=== PATIENT | male | born 1955 | race Caucasian/White ===

== ENCOUNTER 2018-01-02 06:31 | Inpatient (IN) | payer BC ==
[~2018-01-02 06:31] MED LIST: Acetaminophen/oxyCODONE 325-5 MG Tab PO PRN; Cyclobenzaprine 10 MG Tab PO PRN; Pregabalin 25 MG Cap PO SCH; oxyCODONE ER 10 MG TAB.ER PO SCH
[2018-01-02] MEDS ORDERED: Naloxone 0.4 MG/ML SDV IVPUSH PRN (06:32)
[2018-01-02] MEDS ORDERED: Morphine 2 MG/ML Syringe IVPUSH PRN (06:32)
[2018-01-02] MEDS ORDERED: diphenhydrAMINE 50 MG/ML SDV IVPUSH PRN ×2 (06:32→10:51)
[2018-01-02] MEDS ORDERED: Sennosides 8.6 MG Tab PO PRN (06:32)
[2018-01-02] MEDS ORDERED: Bisacodyl 5 MG Tab PO PRN (06:32)
[2018-01-02] MEDS ORDERED: Magnesium Hydroxide 400 MG/5 ML Susp 30 ML Cup PO PRN (06:32)
[2018-01-02] MEDS ORDERED: Ondansetron 4 MG/2 ML SDV IVPUSH PRN ×2 (06:32→10:51)
[2018-01-02] MEDS ORDERED: Lactated Ringers 1,000 ML IV SCH (07:00)
[2018-01-02] MEDS ORDERED: Sodium Chloride 0.9% 10 ML Syringe FLUSH PRN (07:00)
[2018-01-02] MEDS ORDERED: Acetaminophen 325 MG Tab PO ONE (07:00)
[2018-01-02] MEDS ORDERED: Lidocaine 1%/Sod Bicarbonate in NS 8.4% 1 ML Syringe IDERM PRN (07:00)
[2018-01-02] MEDS ORDERED: Morphine 4 MG/ML Syringe IVPUSH PRN (07:11)
--- NOTE | 2018-01-02 07:31 | PCM.PREANE ---
Preanesthetic Assessment - Procedure Proposed Procedure: Left Total Knee Arhtroplasty - Anesthesia/Transfusion/Family Hx Anesthesia History: Prior Anesthesia Without Reaction Family History of Anesthesia Reaction: No Transfusion History: No Prior Transfusion(s) Intubation History: Unknown - Review of Systems General: No Symptoms Pulmonary: No Symptoms Cardiovascular: No Symptoms Gastrointestinal: No Symptoms Neurological: No Symptoms Other: Reports: None - Physical Assessment NPO Status Date: 01/01/18 NPO Status Time: 19:00 Pulse: 58 O2 Sat by Pulse Oximetry: 97 Respiratory Rate: 16 Blood Pressure: 127/94 Temperature: 98.4 C Height: 1.83 m ASA Class: 3 Mental Status: Alert & Oriented x3 Dentition: Reports: Missing Tooth/Teeth (2 teeth pulled last week, one back right and back left ) Thyro-Mental Finger Breadths: 3 Mouth Opening Finger Breadths: 5 ROM/Head Extension: Limited/Partial Lungs: Clear to Auscultation Cardiovascular: Regular Rate, Bradycardia - Lab Values: Laboratory Last Values MRSA (PCR) Negative 12/20/17 10:50 - Allergies Allergies/Adverse Reactions: Allergies Allergy/AdvReac Type Severity Reaction Status Date / Time Latex, Natural Rubber Allergy Rash Verified 12/30/17 08:48 varenicline [From Chantix] AdvReac Depression Verified 12/30/17 08:48 - Blood Blood Available: No Product(s) Available: None - Anesthesia Plan Beta Anjel: Metoprolol Med Last Dose Date: 01/02/18 Med Last Dose Time: 05:00 - Acknowledgements Anesthesia Type Planned: Spinal Pt an Appropriate Candidate for the Planned Anesthesia: Yes Alternatives and Risks of Anesthesia Discussed w Pt/Guardian: Yes Pt/Guardian Understands and Agrees with Anesthesia Plan: Yes PreAnesthesia Questionnaire HEENT History: Reports: Sinusitis, Other (See Below) Other HEENT History: Bacterial Conjunctivitis, Sinus Pain Cardiovascular History: Reports: High Cholesterol, Hypertension, Stents, Other ( See Below) Other Cardiovascular History: PVD, Heart Disease, Chest Pain Gastrointestinal History: Reports: Other (See Below) Other Gastrointestinal History: Rectal Mass Genitourinary History: Reports: Other (See Below) Other Genitourinary History: Erectile Dysfunction Musculoskeletal History: Reports: Arthritis, Back Pain, Chronic, Other (See Below) Other Musculoskeletal History: Left wrist ganglion cyst, Sacroilliac Pain, Hand Injury/Trauma Other Neuro History: Lumbar Pain Hematologic History: Reports: Other (See Below) Other Hematologic History: Hematoma Dermatologic History: Reports: Eczema - Past Surgical History HEENT Surgical History: Reports: None Cardiovascular Surgical History: Reports: Coronary Artery Stent Respiratory Surgical History: Reports: None GI Surgical History: Reports: Appendectomy Male Surgical History: Reports: Vasectomy Musculoskeletal Surgical History: Reports: Arthroscopic Knee, Carpal Tunnel, Knee Replacement, Shoulder Surgery, Other (See Below) Other Musculoskeletal Surgeries/Procedures:: RTKA, Elbow Surgery x2, Foot surgery, Right Knee arthroscopy x3, Right shoulder Surgery, CTR Oncologic Surgical History: Reports: None Dermatological Surgical History: Reports: Skin Graft - SUBSTANCE USE Smoking Status *Q: Current Every Day Smoker (About half a pack per day.) Tobacco Use Within Last Twelve Months: Cigarettes Recreational Drug Use History: No - HOME MEDS Home Medications: Home Meds Enalapril Maleate 20 mg PO DAILY 05/13/15 [History] Ketoprofen/Lidocaine 10%/5%. 1 pump TOP TID 05/13/15 [History] Sildenafil [Viagra] 100 mg PO DAILY PRN 05/13/15 [History] Triamcinolone Acetonide [Triamcinolone Acetonide 0.1% Crm] 15 gm TOP DAILY PRN 05/13/15 [History] traMADol HCl [Tramadol HCl] 50 mg PO DAILY PRN 05/13/15 [History] Cholecalciferol (Vitamin D3) [Vitamin D] 5,000 unit PO DAILY 12/30/17 [History] Metoprolol Tartrate 25 mg PO BID 12/30/17 [History] Multivitamins/Iron/Folic Acid [Cerovite Advanced Formula] 1 tab PO DAILY [History] Potassium Gluconate 99 mg PO DAILY 12/30/17 [History] Ubidecarenone [Co Q-10] 100 mg PO DAILY 12/30/17 [History] amLODIPine Besylate [Amlodipine Besylate] 10 mg PO DAILY 12/30/17 [History] atorvaSTATin Calcium [Atorvastatin Calcium] 40 mg PO DAILY 12/30/17 [History] - CURRENT (IN HOUSE) MEDS Current Meds: Current Medications Bisacodyl (Dulcolax) 5 mg PO DAILY PRN PRN Reason: Constipation Morphine Sulfate 8 mg/Epinephrine HCl 0.3 mg/Cefuroxime Sodium 750 mg/Ketorolac Tromethamine 30 mg/Sodium Chloride 27.9 ml 0 mg .XX ONETIME ONE Stop: 01/02/18 08:51 Cyclobenzaprine HCl (Flexeril) 10 mg PO TID PRN PRN Reason: Spasms Diphenhydramine HCl (Benadryl) 25 mg IVPUSH Q4H PRN PRN Reason: Nausea Docusate Sodium (Colace) 100 mg PO BID [facility] Famotidine (Pepcid) 20 mg PO Q12H [facility] Lactated Ringer's (Ringers, Lactated) 1,000 mls @ 125 mls/hr IV ASDIRECTED [facility] Cefazolin Sodium/Dextrose 2 gm (/ Premix) 50 mls @ 100 mls/hr IV Q8H [facility] Stop: 01/02/18 23:14 Ketorolac Tromethamine (Toradol) 15 mg IVPUSH Q6H PRN PRN Reason: Pain Lidocaine/Sodium Bicarbonate (Buffered Lidocaine 1% In Ns 8.4%) 0.25 ml IDERM ONETIME PRN PRN Reason: Prior to IV Start Magnesium Hydroxide (Milk Of Magnesia) 30 ml PO BID PRN PRN Reason: Constipation Morphine Sulfate (Morphine) 2 mg IVPUSH Q2H PRN PRN Reason: Breakthrough Pain Naloxone HCl (Narcan) 0.1 mg IVPUSH Q5M PRN PRN Reason: Oversedation Ondansetron HCl (Zofran) 4 mg IVPUSH Q6H PRN PRN Reason: Nausea/Vomiting Oxycodone HCl (Oxycontin) 10 mg PO ASDIRECTED [facility] Stop: 01/02/18 11:00 Oxycodone/Acetaminophen (Percocet 325-5 Mg) 1 - 2 tab PO Q4H PRN PRN Reason: Pain Pregabalin (Lyrica) 50 mg PO ONETIME [facility] Rivaroxaban (Xarelto) 10 mg PO DAILY [facility] Senna (Senna) 8.6 mg PO BID PRN PRN Reason: Constipation Sodium Chloride (Saline Flush) 10 ml FLUSH ASDIRECTED PRN PRN Reason: Keep Vein Open Discontinued Medications Acetaminophen (Tylenol) 975 mg PO ONETIME ONE Stop: 01/02/18 07:01 Morphine Sulfate (Morphine) 2 mg IVPUSH Q2H PRN PRN Reason: Breakthrough Pain
[2018-01-02] MEDS ORDERED: Propofol 200 MG/20 ML SDV ONE ×4 (07:44→09:25)
[2018-01-02] MEDS ORDERED: Midazolam 1 MG/ML 2 ML SDV ONE (07:45)
[2018-01-02] MEDS ORDERED: fentaNYL 100 MCG/2 ML SDV ONE (07:45)
[2018-01-02] MEDS ORDERED: ceFAZolin 1 GM Vial ONE (07:51)
[2018-01-02] MEDS ORDERED: Bupivacaine 0.75% 30 ML SDV ONE (08:18)
[2018-01-02] MEDS ORDERED: ePHEDrine 50 MG/ML SDV ONE (09:21)
[2018-01-02] MEDS: ceFAZolin 1 GM Vial ONE ×2 (09:39→09:55)
[2018-01-02] MEDS: Iodine/Sodium Iodide 2% Tincture 30 ML Bottle ONE ×2 (09:39→09:53)
[2018-01-02] MEDS: Bupivacaine 0.25% 30 ML SDV ONE ×2 (09:40→10:01)
[2018-01-02] MEDS: Morphine 8 MG, EPINEPHrine 0.3 MG, Cefuroxime 750 MG, Ketorolac 30 MG, Sodium Chloride ... ONE ×10 (09:40→10:00)
[2018-01-02] MEDS: Vancomycin 1 GM SDV ONE ×2 (09:41→10:03)
[2018-01-02] MEDS ORDERED: Lactated Ringers 1,000 ML ONE (09:49)
[2018-01-02] MEDS ORDERED: Ketorolac 15 MG/ML SDV IVPUSH PRN (10:30)
[2018-01-02] MEDS ORDERED: Ropivacaine 0.5% 5 MG/ML 30 ML SDV ONE (10:46)
[2018-01-02] MEDS ORDERED: EPINEPHrine 1 MG/ML SDV ONE (10:46)
--- NOTE | 2018-01-02 10:50 | PCM.POSTAN ---
POST ANESTHESIA ASSESSMENT - MENTAL STATUS Mental Status: Alert - VITAL SIGNS Pulse Rate: 67 SaO2: 95 Resp Rate: 12 Blood Pressure: 105/68 Temperature: 97.4 C - RESPIRATORY Respiratory Status: Respiratory Rate WNL, Airway Patent, O2 Saturation Stable - CARDIOVASCULAR CV Status: Pulse Rate WNL, Blood Pressure Stable - GASTROINTESTINAL GI Status: No Symptoms - POST OP HYDRATION Hydration Status: Adequate & Stable
[2018-01-02] MEDS ORDERED: fentaNYL 100 MCG/2 ML SDV IVPUSH PRN (10:51)
--- NOTE | 2018-01-02 11:20 | CR ---
Left knee: AP and lateral views of the left knee were obtained. Comparison: No prior left knee exam. Knee prosthesis is seen. Components are aligned. Underlying bony structures are intact. Soft tissue air is noted. Impression: 1. Satisfactory radiographic appearance of recently placed left knee prosthesis. Diagnostic code #2
--- NOTE | 2018-01-02 11:58 | PCM.SN ---
- Free Text/Narrative Note: Left selective femoral nerve block at the adductor canal for post-procedure pain control under US guidance requested by Dr. Cavazos. Time Out: 1100 Start: 1100 End: 1107 Chart reviewed. Consent signed. Questions answered. Appropriate monitors applied. Time out performed. Left mid-shaft femur identified with ultrasound, scanning medially of femur, the femoral artery in the adductor canal visualized , and the femoral nerve located laterally to the artery. The skin was prepped lateral to the ultrasound probe with chlorahexadine times two. The 21ga 4 insulated block needle was inserted under direct ultrasound guidance into the adductor canal. 25mL of 0.5% ropivacaine with 1:200,000 epinephrine was injected circumferentially around the nerve with intermittent negative aspiration noted. Patient tolerated the procedure well. No complications noted. Sterile technique noted along with sterile gloves, mask, and sterile probe cover. See picture on progress note and vital signs on nurses notes. Block completed in PACU. Beny Coelho CRNA
[2018-01-02] MEDS ORDERED: Non-Formulary Medication 1 Each (Sildenafil [Viagra] 100 MG) PO PRN (12:34)
[2018-01-02] MEDS ORDERED: Triamcinolone Acetonide 0.1% Crm 15 GM Tube TOP PRN (12:34)
--- NOTE | 2018-01-02 13:24 | PCM.CONS ---
H&P History of Present Illness - General Date of Service: 01/02/18 Admit Problem/Dx: Admission Diagnosis/Problem Admission Diagnosis/Problem Osteoarthritis of knee Source of Information: Patient, Old Records, Provider History Limitations: Reports: No Limitations - History of Present Illness Initial Comments - Free Text/Narative: is a 62 yo male patient of Dr. Cavazos who is post-operative day 0 of left TKA. Hospital medicine was consulted for post-operative medical care. At this time he is stable. Pain is controlled. He denies any chest pain, shortness of breath, palpitations, nausea, or vomiting. He carries a history of: NE, HLD, HTN , CAD with stents, PVD, osteo-arthritis, right TKA. He smokes 1/2 ppd but states he is trying to quit. He is a full code. His primary care provider is Yumiko Swan. Left Knee Pain Score (Numeric/FACES): 3 - Related Data Allergies/Adverse Reactions: Allergies Allergy/AdvReac Type Severity Reaction Status Date / Time Latex, Natural Rubber Allergy Rash Verified 12/30/17 08:48 varenicline [From Chantix] AdvReac Depression Verified 12/30/17 08:48 Home Medications: Home Meds Enalapril Maleate 20 mg PO DAILY 05/13/15 [History] Ketoprofen/Lidocaine 10%/5%. 1 pump TOP TID 05/13/15 [History] Sildenafil [Viagra] 100 mg PO DAILY PRN 05/13/15 [History] Triamcinolone Acetonide [Triamcinolone Acetonide 0.1% Crm] 15 gm TOP DAILY PRN 05/13/15 [History] traMADol HCl [Tramadol HCl] 50 mg PO DAILY PRN 05/13/15 [History] Cholecalciferol (Vitamin D3) [Vitamin D] 5,000 unit PO DAILY 12/30/17 [History] Metoprolol Tartrate 25 mg PO BID 12/30/17 [History] Multivitamins/Iron/Folic Acid [Cerovite Advanced Formula] 1 tab PO DAILY [History] Potassium Gluconate 99 mg PO DAILY 12/30/17 [History] Ubidecarenone [Co Q-10] 100 mg PO DAILY 12/30/17 [History] amLODIPine Besylate [Amlodipine Besylate] 10 mg PO DAILY 12/30/17 [History] atorvaSTATin Calcium [Atorvastatin Calcium] 40 mg PO DAILY 12/30/17 [History] Acetaminophen/oxyCODONE [Percocet 325-5 MG] 1 - 2 tab PO Q6H PRN #60 tablet 03/15 [Rx] Aspirin [Adult Aspirin] 81 mg PO DAILY 01/02/18 [History] Bisacodyl [Dulcolax] 5 mg PO DAILY PRN tablet 01/02/18 [Rx] Cyclobenzaprine [Flexeril] 10 mg PO TID PRN #40 tablet 01/02/18 [Rx] Docusate Sodium [Colace] 100 mg PO BID cap 01/02/18 [Rx] Famotidine [Pepcid] 20 mg PO Q12H tablet 01/02/18 [Rx] Magnesium Hydroxide [Milk of Magnesia] 30 ml PO BID PRN cup 01/02/18 [Rx] Rivaroxaban [Xarelto] 10 mg PO DAILY #30 tablet 01/02/18 [Rx] Sennosides [Senna] 8.6 mg PO BID PRN tablet 01/02/18 [Rx] Past Medical History HEENT History: Reports: Sinusitis, Other (See Below) Other HEENT History: Bacterial Conjunctivitis, Sinus Pain Cardiovascular History: Reports: High Cholesterol, Hypertension, Stents, Other ( See Below) Other Cardiovascular History: PVD, Heart Disease, Chest Pain Gastrointestinal History: Reports: Other (See Below) Other Gastrointestinal History: Rectal Mass Genitourinary History: Reports: Other (See Below) Other Genitourinary History: Erectile Dysfunction Musculoskeletal History: Reports: Arthritis, Back Pain, Chronic, Other (See Below) Other Musculoskeletal History: Left wrist ganglion cyst, Sacroilliac Pain, Hand Injury/Trauma Other Neuro History: Lumbar Pain Hematologic History: Reports: Other (See Below) Other Hematologic History: Hematoma Dermatologic History: Reports: Eczema - Past Surgical History HEENT Surgical History: Reports: None Cardiovascular Surgical History: Reports: Coronary Artery Stent Respiratory Surgical History: Reports: None GI Surgical History: Reports: Appendectomy Male Surgical History: Reports: Vasectomy Musculoskeletal Surgical History: Reports: Arthroscopic Knee, Carpal Tunnel, Knee Replacement, Shoulder Surgery, Other (See Below) Other Musculoskeletal Surgeries/Procedures:: RTKA, Elbow Surgery x2, Foot surgery, Right Knee arthroscopy x3, Right shoulder Surgery, CTR Oncologic Surgical History: Reports: None Dermatological Surgical History: Reports: Skin Graft Social & Family History - Tobacco Use Smoking Status *Q: Current Every Day Smoker (About half a pack per day.) Years of Tobacco use: 45 - Recreational Drug Use Recreational Drug Use: No H&P Review of Systems - Review of Systems: Review Of Systems: See Below General: Reports: No Symptoms. Denies: Fever, Chills HEENT: Reports: No Symptoms Pulmonary: Reports: No Symptoms. Denies: Shortness of Breath, Wheezing, Cough Cardiovascular: Reports: No Symptoms. Denies: Chest Pain, Palpitations, Dyspnea on Exertion Gastrointestinal: Reports: No Symptoms Genitourinary: Reports: No Symptoms. Denies: Dysuria, Frequency, Burning, Pain , Urgency Musculoskeletal: Reports: Joint Pain (11/05, s/p L TKA) Skin: Reports: No Symptoms Psychiatric: Reports: No Symptoms Neurological: Reports: No Symptoms Hematologic/Lymphatic: Reports: No Symptoms Immunologic: Reports: No Symptoms Exam - Exam Exam: See Below - Vital Signs Vital Signs: Last Vital Signs Temp 97.3 F 01/02/18 11:37 Pulse 67 01/02/18 10:50 Resp 17 01/02/18 11:37 BP 104/70 01/02/18 11:37 Pulse Ox 96 01/02/18 11:37 Weight: 241 lb - Exam Quality Assessment: Urinary Catheter, DVT Prophylaxis General: Alert, Oriented, Cooperative HEENT: Conjunctiva Clear, EACs Clear, EOMI, Hearing Intact, Mucosa Moist & [place] , Nares Patent, Normal Nasal Septum, Posterior Pharynx Clear, PERRLA Neck: Supple, Trachea Midline, 2 Lungs: Clear to Auscultation, Normal Respiratory Effort Cardiovascular: Regular Rate, Regular Rhythm GI/Abdominal Exam: Normal Bowel Sounds, Soft, Non-Tender, No Organomegaly, No Distention, No Abnormal Bruit, No Mass, Pelvis Stable (Male) Exam: Deferred Rectal (Males) Exam: Deferred Back Exam: Normal Inspection, Full Range of Motion, NT Extremities: Normal Inspection, Non-Tender, No Pedal Edema, Normal Capillary Refill, Limited Range of Motion (s/p L TKA) Peripheral Pulses: 1+: Posterior Tibial (L), Posterior Tibial (R), Dorsalis Pedis (L), Dorsalis Pedis (R) Skin: Warm, Dry, Intact Neurological: Cranial Nerves Intact (grossly) Neuro Extensive - Mental Status: Alert, Oriented x3, Normal Mood/Affect, Normal Cognition Neuro Extensive - Motor, Sensory, Reflexes: Abnormal Gait (s/p L TKA) Psychiatric: Alert, Normal Affect, Normal Mood Consult PN Assessment/Plan POD#: 0 Procedures: Procedures ASSAY OF BLOOD/URIC ACID (04/17/14) ASSAY OF CK (CPK) (07/25/17) ASSAY OF NATRIURETIC PEPTIDE (07/18/15) ASSAY OF PREALBUMIN (12/14/17) ASSAY OF PROTEIN URINE (06/09/15) ASSAY OF SERUM ALBUMIN (12/14/17) ASSAY OF TROPONIN QUANT (05/13/15) ASSAY THYROID STIM HORMONE (06/11/16) C-REACTIVE PROTEIN (04/17/14) CHEST X-RAY 1 VIEW FRONTAL (05/13/15) CHEST X-RAY 2VW FRONTAL&LATL (12/31/14) COMPLETE CBC AUTOMATED (12/14/17) COMPLETE CBC W/AUTO DIFF WBC (05/13/15) COMPREHEN METABOLIC PANEL (07/25/17) CREATINE MB FRACTION (05/13/15) CT ANGIOGRAPHY CHEST (05/13/15) DXA BONE DENSITY AXIAL (12/22/17) ELECTROCARDIOGRAM TRACING (05/13/15) EMERGENCY DEPT VISIT (05/13/15) EXTREMITY STUDY (09/30/15) FIBRIN DEGRADATION QUANT (05/13/15) LIPID PANEL (07/25/17) METABOLIC PANEL TOTAL CA (12/14/17) MRI CHEST SPINE W/O DYE (01/04/17) MRI JOINT UPR EXTREM W/O DYE (03/16/17) MRI LUMBAR SPINE W/O DYE (01/04/17) PROTHROMBIN TIME (12/14/17) RBC SED RATE AUTOMATED (04/17/14) ROUTINE VENIPUNCTURE (05/13/15) THER/PROPH/DIAG INJ SC/IM (05/13/15) THER/PROPH/DIAG IV INF ADDON (05/13/15) THER/PROPH/DIAG IV INF INIT (05/13/15) THROMBOPLASTIN TIME PARTIAL (12/14/17) UPR/LXTR ART STDY 3+ LVLS (10/03/15) UR ALBUMIN SEMIQUANTITATIVE (01/12/16) URINALYSIS AUTO W/O SCOPE (05/08/15) URINALYSIS AUTO W/SCOPE (12/15/17) URINE BACTERIA CULTURE (11/29/13) URINE CULTURE/COLONY COUNT (12/15/17) X-RAY EXAM CHEST 2 VIEWS (12/14/17) X-RAY EXAM L-S SPINE 2/3 VWS (12/21/16) X-RAY EXAM OF FINGER(S) (08/30/17) X-RAY EXAM OF HAND (07/02/16) X-RAY EXAM OF WRIST (02/21/17) X-RAY EXAM THORAC SPINE 2VWS (12/21/16) (1) Status post total left knee replacement SNOMED Code(s): 2518598078945 Code(s): Z96.652 - PRESENCE OF LEFT ARTIFICIAL KNEE JOINT Priority: High (2) HLD (hyperlipidemia) SNOMED Code(s): 18315167 Code(s): E78.5 - HYPERLIPIDEMIA, UNSPECIFIED Priority: Medium Qualifiers: Hyperlipidemia type: unspecified Qualified Code(s): E78.5 - Hyperlipidemia , unspecified (3) HTN (hypertension) SNOMED Code(s): 65751096 Code(s): I10 - ESSENTIAL (PRIMARY) HYPERTENSION Priority: Medium Qualifiers: Hypertension type: unspecified Qualified Code(s): I10 - Essential (primary ) hypertension (4) CAD (coronary artery disease) SNOMED Code(s): 93700166 Code(s): I25.10 - ATHSCL HEART DISEASE OF [place] CORONARY ARTERY W/O ANG PCTRS Priority: Low Qualifiers: Coronary Disease-Associated Artery/Lesion type: unspecified vessel or lesion type [place] vs. transplanted heart: [place] heart Associated angina: angina presence unspecified Qualified Code(s): I25.10 - Atherosclerotic heart disease of [place] coronary artery without angina pectoris (5) Stented coronary artery Priority: Low (6) PVD (peripheral vascular disease) SNOMED Code(s): 354597660 Code(s): I73.9 - PERIPHERAL VASCULAR DISEASE, UNSPECIFIED Priority: Medium (7) History of total right knee replacement SNOMED Code(s): 5865635713216, 931706723, 3258658665587 Code(s): Z96.651 - PRESENCE OF RIGHT ARTIFICIAL KNEE JOINT Priority: Low (8) Acute myocardial infarction SNOMED Code(s): 55666859 Code(s): I21.3 - ST ELEVATION (STEMI) MYOCARDIAL INFARCTION OF [facility] SITE Priority: Low Qualifiers: Myocardial infarction type: unspecified Involved coronary artery: unspecified coronary artery Qualified Code(s): I21.9 - Acute myocardial infarction, unspecified Problem List Initiated/Reviewed/Updated: Yes Plan: I/P: Acute: S/P left total knee arthroplasty - post-operative day 0 -DVT prophylaxis and pain management per primary care team -PT/OT -IS/RT -Monitor oxygen saturation -Titrate oxygen as needed -Vital signs stable -Monitor labs Chronic: NE HLD HTN CAD with stents PVD History of right TKA Plan: CM for discharge planning GI prophylaxis: Pepcid DVT/PE prophylaxis: JAMES riggs, SCD, Xaralto Home medications as indicated Other orders as listed above Routine AM labs He is a full code. His PCP is Yumiko Swan. Thank you for allowing us to participate in the care of this patient!! From a hospital standpoint, this patient is clear for discharge.
[2018-01-02] MEDS ORDERED: LIDOCAINE TOP SCH (15:00)
[2018-01-02] MEDS ORDERED: KETOPROFEN TOP SCH (15:00)
[2018-01-02] MEDS ORDERED: ceFAZolin 2 GM in Premix Bag 1 BAG IV SCH (17:00)
[2018-01-02] MEDS ORDERED: Famotidine 20 MG Tab PO SCH (21:00)
[2018-01-02] MEDS ORDERED: Docusate Sodium 100 MG Cap PO SCH (21:00)
[2018-01-02] MEDS ORDERED: Metoprolol Tartrate 25 MG Tab PO SCH (21:00)
[2018-01-03 07:56] VITALS: BP 105/68
--- NOTE | 2018-01-03 07:56 | PCM48HPAN ---
Post Anesthesia Note - EVALUATION WITHIN 48HRS OF ANESTHETIC Vital Signs in Normal Range: Yes Patient Participated in Evaluation: No (RN report) Respiratory Function Stable: Yes Airway Patent: Yes Cardiovascular Function Stable: Yes Hydration Status Stable: Yes Pain Control Satisfactory: Yes Nausea and Vomiting Control Satisfactory: Yes Mental Status Recovered: Yes Pulse Rate: 67 Resp Rate: 17 Temperature: 97.4 C Blood Pressure: 105/68 - COMMENTS/OBSERVATIONS Free Text/Narrative:: no anesthesia complications noted
--- NOTE | 2018-01-03 07:57 | PCM.DCSUM1 ---
Discharge Summary - Hospital Course Brief History: is a 62 yo male who underwent left TKA with Dr. Cavazos on 2017. The procedure was completed under spinal anesthesia. The pt tolerated the procedure well and was admitted to the Medical-Surgical Unit. Medical management was provided by the Hospitalist service. The pt's Hospital course was uneventful. On POD#0, the pt met all inpatient therapy goals and was desiring to discharge from Hospital. The pt will intiate Xarelto on POD#1. He will use TEDs and monitor wound. He will follow-up at the Clinic in 1 week or soon if indicated. The pt was discharge to home with his . - Discharge Data Discharge Date: 01/02/18 Discharge Disposition: Home, Self-Care 01 Condition: Good - Patient Summary/Data Consults: Consultations 01/02/18 06:31 OT Evaluation and Treatment [CONS] Routine PT Evaluation and Treatment [CONS] Routine 01/02/18 06:32 Consult to Physician [CONS] Routine - Patient Instructions Diet: Usual Diet as Tolerated Activity: Apply Ice, As Tolerated, Elevate Extremity, Full Weight Bearing Driving: Do Not Drive Showering/Bathing: May Shower Wound/Incision Care: Keep Operative Site/Wound Site Clean and Dry, Do NOT Change Dressing Notify Provider of: Fever, Increased Pain, Swelling and Redness, Drainage, Nausea and/or Vomiting Other/Special Instructions: Please get up and moving around every hour while awake. This helps to prevent blood clots. Please use your walker and have help with mobility as needed. Please take the blood thinner medication - Xarelto - daily. This also helps to prevent blood clots. At home, please complete the exercises that you learned during the Hospital stay. Schedule for physical therapy. Use the pain medication as needed. The medication may cause drowsiness and constipation. Contact your primary care provider for instructions if you are constipated. You may use a stool softener like docusate sodium or Colace 100mg twice daily and/or a laxative like Miralax daily for constipation. Increase your water and fiber intake while you are using the pain medication. Please try to wean from use of the pain medication as soon as able. Wear the JAMES hose during the day and you may remove these at night. Elevate the limb to decrease swelling. Place ice to the area often. Place a towel between your skin and the blue pad. Use the incentive spirometer often. Take deep breaths throughout the day. Increase your protein intake while you are healing. If you have diabetes, please closely monitor your blood sugars and notify your primary care provider with abnormal values. Call the Clinic with questions or concerns - [phone]. - Discharge Plan Prescriptions/Med Rec: Acetaminophen/oxyCODONE [Percocet 325-5 MG] 1 - 2 tab PO Q6H PRN #60 tablet PRN Reason: Pain Cyclobenzaprine [Flexeril] 10 mg PO TID PRN #40 tablet PRN Reason: Spasms Rivaroxaban [Xarelto] 10 mg PO DAILY #30 tablet Home Medications: Home Meds Enalapril Maleate 20 mg PO DAILY 05/13/15 [History] Ketoprofen/Lidocaine 10%/5%. 1 pump TOP TID 05/13/15 [History] Sildenafil [Viagra] 100 mg PO DAILY PRN 05/13/15 [History] Triamcinolone Acetonide [Triamcinolone Acetonide 0.1% Crm] 15 gm TOP DAILY PRN 05/13/15 [History] traMADol HCl [Tramadol HCl] 50 mg PO DAILY PRN 05/13/15 [History] Cholecalciferol (Vitamin D3) [Vitamin D] 5,000 unit PO DAILY 12/30/17 [History] Metoprolol Tartrate 25 mg PO BID 12/30/17 [History] Multivitamins/Iron/Folic Acid [Cerovite Advanced Formula] 1 tab PO DAILY [History] Potassium Gluconate 99 mg PO DAILY 12/30/17 [History] Ubidecarenone [Co Q-10] 100 mg PO DAILY 12/30/17 [History] amLODIPine Besylate [Amlodipine Besylate] 10 mg PO DAILY 12/30/17 [History] atorvaSTATin Calcium [Atorvastatin Calcium] 40 mg PO DAILY 12/30/17 [History] Acetaminophen/oxyCODONE [Percocet 325-5 MG] 1 - 2 tab PO Q6H PRN #60 tablet 03/15 [Rx] Aspirin [Adult Aspirin] 81 mg PO DAILY 01/02/18 [History] Bisacodyl [Dulcolax] 5 mg PO DAILY PRN tablet 01/02/18 [Rx] Cyclobenzaprine [Flexeril] 10 mg PO TID PRN #40 tablet 01/02/18 [Rx] Docusate Sodium [Colace] 100 mg PO BID cap 01/02/18 [Rx] Famotidine [Pepcid] 20 mg PO Q12H tablet 01/02/18 [Rx] Magnesium Hydroxide [Milk of Magnesia] 30 ml PO BID PRN cup 01/02/18 [Rx] Rivaroxaban [Xarelto] 10 mg PO DAILY #30 tablet 01/02/18 [Rx] Sennosides [Senna] 8.6 mg PO BID PRN tablet 01/02/18 [Rx] Referrals: Stephanie Barksdale, LAUREN [Physician Almond Blancher Operator] - - Patient Data Vitals - Most Recent: Last Vital Signs Temp 97.3 F 01/02/18 11:37 Pulse 67 01/02/18 10:50 Resp 17 01/02/18 11:37 BP 104/70 01/02/18 11:37 Pulse Ox 96 01/02/18 11:37 Weight - Most Recent: 241 lb Med Orders - Current: Current Medications Discontinued Medications Acetaminophen (Tylenol) 975 mg PO ONETIME ONE Stop: 01/02/18 07:01 Last Admin: 01/02/18 08:14 Dose: 975 mg Amlodipine Besylate (Norvasc) 10 mg PO DAILY MELIDA Aspirin (Halfprin) 81 mg PO DAILY MELIDA Bisacodyl (Dulcolax) 5 mg PO DAILY PRN PRN Reason: Constipation Bupivacaine HCl (Marcaine 0.25%) Confirm Administered Dose 30 ml .ROUTE .STK- MED ONE Stop: 01/02/18 07:24 Last Admin: 01/02/18 10:01 Dose: 30 ml Bupivacaine HCl (Sensorcaine-Mpf 0.75%) Confirm Administered Dose 30 ml .ROUTE .STK-MED ONE Stop: 01/02/18 08:19 Cefazolin Sodium (Ancef) Confirm Administered Dose 2 gm .ROUTE .STK-MED ONE Stop: 01/02/18 07:24 Last Admin: 01/02/18 09:55 Dose: 2 gm Cefazolin Sodium (Ancef) Confirm Administered Dose 2 gm .ROUTE .STK-MED ONE Stop: 01/02/18 07:52 Cholecalciferol (Vitamin D3) 5,000 unit PO DAILY MELIDA Morphine Sulfate 8 mg/Epinephrine HCl 0.3 mg/Cefuroxime Sodium 750 mg/Ketorolac Tromethamine 30 mg/Sodium Chloride 27.9 ml 0 mg .XX ONETIME ONE Stop: 01/02/18 08:51 Last Admin: 01/02/18 10:00 Dose: 788.3 mg Cyclobenzaprine HCl (Flexeril) 10 mg PO TID PRN PRN Reason: Spasms Diphenhydramine HCl (Benadryl) 25 mg IVPUSH Q4H PRN PRN Reason: Nausea Diphenhydramine HCl (Benadryl) 25 mg IVPUSH Q6H PRN PRN Reason: pruritis Stop: 01/02/18 14:00 Docusate Sodium (Colace) 100 mg PO BID [facility] Enalapril Maleate (Vasotec) 20 mg PO DAILY [facility] Ephedrine Sulfate (Ephedrine Sulfate) Confirm Administered Dose 50 mg .ROUTE .STK-MED ONE Stop: 01/02/18 09:22 Epinephrine HCl (Adrenalin) Confirm Administered Dose 1 mg .ROUTE .STK-MED ONE Stop: 01/02/18 10:47 Famotidine (Pepcid) 20 mg PO Q12H [facility] Fentanyl (Sublimaze) Confirm Administered Dose 100 mcg .ROUTE .STK-MED ONE Stop: 01/02/18 07:46 Fentanyl (Sublimaze) 50 mcg IVPUSH Q5M PRN PRN Reason: Pain Stop: 01/02/18 14:00 Lactated Ringer's (Ringers, Lactated) 1,000 mls @ 125 mls/hr IV ASDIRECTED [facility] Last Admin: 01/02/18 07:25 Dose: 125 mls/hr Cefazolin Sodium/Dextrose 2 gm (/ Premix) 50 mls @ 100 mls/hr IV Q8H [facility] Stop: 01/03/18 09:29 Lactated Ringer's (Ringers, Lactated) Confirm Administered Dose 1,000 mls @ as directed .ROUTE .STK-MED ONE Stop: 01/02/18 09:50 Iodine (Iodine 2% Mild Tincture) Confirm Administered Dose 30 ml .ROUTE .STK- MED ONE Stop: 01/02/18 07:24 Last Admin: 01/02/18 09:53 Dose: 18 ml Ketorolac Tromethamine (Toradol) 15 mg IVPUSH Q6H PRN PRN Reason: Pain Lidocaine HCl (Xylocaine-Mpf 1%) 5 ml .ROUTE .STK-MED ONE Stop: 01/02/18 08:01 Lidocaine/Sodium Bicarbonate (Buffered Lidocaine 1% In Ns 8.4%) 0.25 ml IDERM ONETIME PRN PRN Reason: Prior to IV Start Last Admin: 01/02/18 07:24 Dose: 0.25 ml Magnesium Hydroxide (Milk Of Magnesia) 30 ml PO BID PRN PRN Reason: Constipation Metoprolol Tartrate (Lopressor) 25 mg PO BID [facility] Midazolam HCl (Versed 1 Mg/Ml) Confirm Administered Dose 2 mg .ROUTE .STK-MED ONE Stop: 01/02/18 07:46 Morphine Sulfate (Morphine) 2 mg IVPUSH Q2H PRN PRN Reason: Breakthrough Pain Morphine Sulfate (Morphine) 2 mg IVPUSH Q2H PRN PRN Reason: Breakthrough Pain Multivitamins (Thera) 1 each PO DAILY [facility] Naloxone HCl (Narcan) 0.1 mg IVPUSH Q5M PRN PRN Reason: Oversedation Non-Formulary Medication (Potassium Gluconate [Potassium Gluconate]) 99 mg PO DAILY [facility] Non-Formulary Medication (Sildenafil [Viagra]) 100 mg PO DAILY PRN PRN Reason: Other Non-Formulary Medication (Ubidecarenone) 100 mg PO DAILY [facility] Ondansetron HCl (Zofran) 4 mg IVPUSH Q6H PRN PRN Reason: Nausea/Vomiting Ondansetron HCl (Zofran) 4 mg IVPUSH ONETIME PRN PRN Reason: Nausea/Vomiting Stop: 01/02/18 14:00 Oxycodone HCl (Oxycontin) 10 mg PO ASDIRECTED [facility] Stop: 01/02/18 11:00 Last Admin: 01/02/18 08:14 Dose: 10 mg Oxycodone/Acetaminophen (Percocet 325-5 Mg) 1 - 2 tab PO Q4H PRN PRN Reason: Pain Ketoprofen/Lidocaine (10%/5%. 1 Pump) 0 each TOP TID [facility] Pregabalin (Lyrica) 50 mg PO ONETIME [facility] Last Admin: 01/02/18 08:14 Dose: 50 mg Propofol (Diprivan 20 Ml) Confirm Administered Dose 800 mg .ROUTE .STK-MED ONE Stop: 01/02/18 07:45 Propofol (Diprivan 20 Ml) Confirm Administered Dose 200 mg .ROUTE .STK-MED ONE Stop: 01/02/18 07:49 Propofol (Diprivan 20 Ml) Confirm Administered Dose 200 mg .ROUTE .STK-MED ONE Stop: 01/02/18 09:26 Propofol (Diprivan 20 Ml) Confirm Administered Dose 200 mg .ROUTE .STK-MED ONE Stop: 01/02/18 09:26 Rivaroxaban (Xarelto) 10 mg PO DAILY MELIDA Ropivacaine (Naropin 0.5%) Confirm Administered Dose 30 ml .ROUTE .STK-MED ONE Stop: 01/02/18 10:47 Rosuvastatin Calcium (Crestor) 10 mg PO DAILY MELIDA Senna (Senna) 8.6 mg PO BID PRN PRN Reason: Constipation Sodium Chloride (Saline Flush) 10 ml FLUSH ASDIRECTED PRN PRN Reason: Keep Vein Open Tranexamic Acid (Cyklokapron) Confirm Administered Dose 1,000 mg .ROUTE .STK- MED ONE Stop: 01/02/18 07:23 Last Admin: 01/02/18 10:06 Dose: 1,000 mg Triamcinolone Acetonide (Triamcinolone Acetonide 0.1% Crm) 15 gm TOP DAILY PRN PRN Reason: Rash Vancomycin HCl (Vancomycin) Confirm Administered Dose 1 gm .ROUTE .STK-MED ONE Stop: 01/02/18 07:24 Last Admin: 01/02/18 10:03 Dose: 1 gm - Exam General: Reports: Alert, Cooperative, No Acute Distress Lungs: Reports: Normal Respiratory Effort Extremities: Other (The pt was active in room and hallway.)
[2018-01-03] MEDS ORDERED: Rivaroxaban 10 MG Tab PO SCH (09:00)
[2018-01-03] MEDS ORDERED: Rosuvastatin 10 MG Tab PO SCH (09:00)
[2018-01-03] MEDS ORDERED: Non-Formulary Medication 1 Each (Ubidecarenone 100 MG) PO SCH (09:00)
[2018-01-03] MEDS ORDERED: Aspirin 81 MG Tab.EC PO SCH (09:00)
[2018-01-03] MEDS ORDERED: Non-Formulary Medication 1 Each (Potassium Gluconate [Potassium Gluconate] 99 MG) PO SCH (09:00)
[2018-01-03] MEDS ORDERED: amLODIPine 10 MG Tab PO SCH (09:00)
[2018-01-03] MEDS ORDERED: Multivitamins,Therapeutic Tab PO SCH (09:00)
[2018-01-03] MEDS ORDERED: Cholecalciferol (Vitamin D3) 5,000 UNIT Tab PO SCH (09:00)
--- NOTE | 2018-01-05 11:31 | PCM.OPNOTE ---
- General Post-Op/Procedure Note Date of Surgery/Procedure: 01/02/18 Operative Procedure(s): left total knee arthroplasty Pre Op Diagnosis: left knee osteoarthrosis Post-Op Diagnosis: Same Anesthesia Technique: Local, MAC, Spinal Primary Surgeon: Serafin Cavazos Anesthesia Provider: Elly Coelho House Sitter: Stephanie Barksdale House Sitter: Rubi Marcus EBSyl in mLs: 400 Complications: None Condition: Good Free Text/Narrative:: size 6 and 6 35x10
--- NOTE | 2018-01-05 22:40 | OR ---
DATE OF OPERATION: 01/02/2018 SURGEON: Serafin Cavazos MD OPERATION PERFORMED: Left total knee arthroplasty. PREOPERATIVE DIAGNOSIS: Left knee osteoarthrosis. POSTOPERATIVE DIAGNOSIS: Left knee osteoarthrosis. ANESTHESIA: Local MAC with spinal. ANESTHESIA PROVIDER: Anita Matias. SILVER BUFFER: Stephanie Barksdale PA-C and Rubi Marcus LPN. ESTIMATED BLOOD LOSS: 400 mL. COMPLICATIONS: None. CONDITION: Stable. IMPLANTS: 1. [place] size 6 CR press-fit femur. 2. [place] size 6 press-fit universal tibial base plate. 3. [place] size 9 mm CS polyethylene insert. 4. [place] size 35 x 10 mm press-fit asymmetric patella. DESCRIPTION OF PROCEDURE: The patient was identified in the preop holding area. Proper site was marked and identified by the surgeon. The patient was taken back to the operating theater. After adequate anesthesia, the patient's left lower extremity had a nonsterile tourniquet applied and it was then sterilely prepped and draped in the usual sterile fashion. OR timeout was performed. The patient received 2 g IV Ancef. At this time, left lower extremity was exsanguinated. Tourniquet was insufflated to 300 mmHg. Standard medial parapatellar incision was made. Medial parapatellar arthrotomy was created. Deep fibers of the MCL were raised and anterior fat pad was resected. At this time, attention was turned to the patella. Patella measured 26, it was resected to a 16 for 35 x 10 mm patella. Drill holes were then drilled and found to be in adequate position. The drill was then drilled in the distal femur and the intramedullary distal femoral cutting guide was then placed. 8 mm was resected off the distal femur and was found to be an adequate resection. Sizing guide was placed. It was found to be a size 6 femur that was shown on the implant record at the beginning of this dictation. The drill holes were drilled for the epicondylar axis using [place] line and epicondyles as reference. At this time, the 4-in-1 cutting block was placed. An anterior posterior and anterior and posterior chamfer cuts were then completed. The correct size box cut was then placed and the box cut was completed and found to be an adequate resection. Attention was turned to the tibia. The posterior medial lateral retractors were placed. The extramedullary tibial guide was placed. It was placed in the old footprint of the ACL. It was aligned with the center of the ankle and 0 degrees of slope, 9 mm was then resected off the unaffected lateral side. There was found to be an acceptable reduction. At this time, posterior osteophytes were removed along with medial and lateral meniscus. A trial implant was placed with a correct sized tibia that was mentioned at the beginning of the dictation. A [place] size 9 mm CS polyethylene was then placed. The patient's knee was brought through range of motion. The patella was tracking centrally and was stable to varus and valgus stress. Alignment was found to be roughly at 0 degrees. The tibia was stamped and drilled in proper rotation. The universal tibial base plate was press-fit in place. Next, the [place] size 6 CR press-fit femur was impacted into place and the [place] size 9 mm CS polyethylene was placed. The patient's knee was brought into full extension. The patella was then press-fit in place at this time. Tourniquet was deflated. One liter dilute Betadine solution was irrigated through the knee along with 3 L of pulse lavage irrigation with Ancef. Periarticular injection was then completed. The patient's knee was brought through a range of motion. Once the cement had time to set up and it was found to be stable to varus valgus stress, the patella was tracking centrally with full range of motion. At this time, a #2 barbed suture was used for closure of the medial parapatellar arthrotomy. Topical tranexamic acid was placed. 2-0 Vicryl was used subcutaneously, a running 3-0 Monocryl was used subcuticularly. The patient tolerated the procedure well and was sent to the PACU in stable condition. MMODAL /[id number] TIFFANIE
== END 2018-01-02 18:23 | disposition home or self-care (01) | DRG 302 ==
LOC: JD.MS 06:31 → EDSTATUS 07:30
PROVIDERS: ADMIT Orthopaedic Surgery; ATTEND Orthopaedic Surgery
PROC: 0SRD0JA Replacement of Left Knee Joint with Synthetic Substitute, Uncemented, Open Approach (ICD-10-PCS; principal; 2018-01-02)
PROC: 3E0T3BZ Introduction of Anesthetic Agent into Peripheral Nerves and Plexi, Percutaneous Approach (ICD-10-PCS; 2018-01-02)
DX: M17.12 Unilateral primary osteoarthritis, left knee (principal); I25.10 Atherosclerotic heart disease of native coronary artery without angina pectoris; L30.9 Dermatitis, unspecified; E78.5 Hyperlipidemia, unspecified; I10 Essential (primary) hypertension; M25.762 Osteophyte, left knee; I73.9 Peripheral vascular disease, unspecified; F17.210 Nicotine dependence, cigarettes, uncomplicated; G89.29 Other chronic pain; M54.5 Low back pain; I25.2 Old myocardial infarction; Z96.651 Presence of right artificial knee joint; Z88.8 Allergy status to other drugs, medicaments and biological substances; Z91.040 Latex allergy status; Z79.82 Long term (current) use of aspirin; Z79.899 Other long term (current) drug therapy; Z95.5 Presence of coronary angioplasty implant and graft
CPT/HCPCS: 64450; 73560-26-LT; 73560-LT; 87641; 97110-GP; 97116-GP; 97161-GP; 97165-GO; A9270-GY; C1776; J0171; J0690; J0697; J1885; J2250; J2270; J2704; J2795; J3010; J3370; J3490; J7120

== ENCOUNTER 2020-04-03 08:18 | Day surgery (SDC) | payer MEDICARE, BC ==
[~2020-04-03 08:18] MED LIST changes: -Acetaminophen/oxyCODONE 325-5 MG Tab PO PRN; -Cyclobenzaprine 10 MG Tab PO PRN; +Lactated Ringers 1,000 ML IV SCH; +Lidocaine 1%/Sod Bicarbonate in NS 8.4% 1 ML Syringe IDERM PRN; -Pregabalin 25 MG Cap PO SCH; +Sodium Chloride 0.9% 10 ML Syringe FLUSH PRN; -oxyCODONE ER 10 MG TAB.ER PO SCH
--- NOTE | 2020-04-03 08:53 | PCM.PREANE ---
Preanesthetic Assessment - Anesthesia/Transfusion/Family Hx Anesthesia History: Prior Anesthesia Without Reaction Family History of Anesthesia Reaction: No Transfusion History: No Prior Transfusion(s) Intubation History: Unknown - Review of Systems General: No Symptoms Cardiovascular: No Symptoms Gastrointestinal: No Symptoms Neurological: No Symptoms Other: Reports: None - Physical Assessment NPO Status Date: 04/02/20 NPO Status Time: 20:00 ASA Class: 2 Mental Status: Alert & Oriented x3 Airway Class: Mallampati = 3 Dentition: Reports: Normal Dentition Thyro-Mental Finger Breadths: 3 Mouth Opening Finger Breadths: 3 ROM/Head Extension: Full Lungs: Clear to Auscultation, Normal Respiratory Effort Cardiovascular: Regular Rate, Regular Rhythm - Allergies Allergies/Adverse Reactions: Allergies Allergy/AdvReac Type Severity Reaction Status Date / Time atorvastatin [From Lipitor] Allergy Muscle Verified 04/02/20 14:15 Aches Latex, Natural Rubber Allergy Rash Verified 12/30/17 08:48 varenicline [From Chantix] AdvReac Depression Verified 12/30/17 08:48 - Anesthesia Plan Beta Anjel: Metoprolol Med Last Dose Date: 04/03/20 Med Last Dose Time: 07:00 - Acknowledgements Anesthesia Type Planned: MAC Pt an Appropriate Candidate for the Planned Anesthesia: Yes Alternatives and Risks of Anesthesia Discussed w Pt/Guardian: Yes Pt/Guardian Understands and Agrees with Anesthesia Plan: Yes PreAnesthesia Questionnaire HEENT History: Reports: Sinusitis, Other (See Below) Other HEENT History: Bacterial Conjunctivitis, Sinus Pain Cardiovascular History: Reports: High Cholesterol, Hypertension, [place] (2013), Stents, Other (See Below) Other Cardiovascular History: PVD, Heart Disease, Chest Pain Respiratory History: Reports: None Gastrointestinal History: Reports: Other (See Below) Other Gastrointestinal History: Rectal Mass Genitourinary History: Reports: Other (See Below) Other Genitourinary History: Erectile Dysfunction Musculoskeletal History: Reports: Arthritis, Back Pain, Chronic, Other (See Below) Other Musculoskeletal History: Left wrist ganglion cyst, Sacroilliac Pain, Hand Injury/Trauma Other Neuro History: Lumbar Pain Psychiatric History: Reports: None Endocrine/Metabolic History: Reports: None Hematologic History: Reports: Other (See Below) Other Hematologic History: Hematoma Dermatologic History: Reports: Eczema - Past Surgical History HEENT Surgical History: Reports: None Cardiovascular Surgical History: Reports: Coronary Artery Stent Respiratory Surgical History: Reports: None GI Surgical History: Reports: Appendectomy Male Surgical History: Reports: Vasectomy Musculoskeletal Surgical History: Reports: Arthroscopic Knee, Carpal Tunnel, Knee Replacement, Shoulder Surgery, Other (See Below) Other Musculoskeletal Surgeries/Procedures:: Right knee surgery, right elbow and wrist Oncologic Surgical History: Reports: None Dermatological Surgical History: Reports: Skin Graft - SUBSTANCE USE Smoking Status *Q: Current Every Day Smoker Tobacco Use Within Last Twelve Months: Cigarettes Recreational Drug Use History: No - HOME MEDS Home Medications: Home Meds Enalapril Maleate 20 mg PO DAILY 05/13/15 [History] Triamcinolone Acetonide [Triamcinolone Acetonide 0.1% Crm] 15 gm TOP DAILY PRN 05/13/15 [History] traMADol HCl [Tramadol HCl] 50 mg PO BID PRN 05/13/15 [History] Metoprolol Tartrate 25 mg PO BID 12/30/17 [History] Multivitamins/Iron/Folic Acid [Cerovite Advanced Formula] 1 tab PO DAILY 12/30/17 [History] Ubidecarenone [Co Q-10] 100 mg PO DAILY 12/30/17 [History] amLODIPine Besylate [Amlodipine Besylate] 10 mg PO DAILY 12/30/17 [History] Aspirin [Adult Aspirin] 81 mg PO DAILY 01/02/18 [History] Cetirizine HCl [Zyrtec] 10 mg PO DAILY 04/02/20 [History] Diclofenac Sodium [Voltaren 1% Gel] 1 applic TOP ASDIRECTED PRN 04/02/20 [History] Tamsulosin HCl [Flomax] 0.4 mg PO DAILY 04/02/20 [History] - CURRENT (IN HOUSE) MEDS Current Meds: Current Medications Lactated Ringer's (Ringers, Lactated) 1,000 mls @ 125 mls/hr IV ASDIRECTED MELIDA Stop: 04/03/20 23:00 Lidocaine/Sodium Bicarbonate (Buffered Lidocaine 1% In Ns 8.4%) 0.25 ml IDERM ONETIME PRN PRN Reason: Prior to IV Start Stop: 04/03/20 23:00 Sodium Chloride (Saline Flush) 10 ml FLUSH ASDIRECTED PRN PRN Reason: Keep Vein Open Stop: 04/03/20 23:00
[2020-04-03] MEDS ORDERED: Propofol 200 MG/20 ML SDV ONE ×2 (09:04→09:20)
[2020-04-03] MEDS ORDERED: Lidocaine 1% 4 ML ONE (09:04)
--- NOTE | 2020-04-03 09:45 | PCM.PRNOTE ---
- Free Text/Narrative Note: Date: 04/03/2020 Procedure: screening colonoscopy Endoscopist: Issac Sharma MD Findings: excellent prep. Ileocecal valve and appendiceal orifice visualized. Single small polyp in ascending colon. Internal hemorrhoids. Detailed Report: The patient was taken to the endoscopy suite and placed in left lateral decub itus position. Time out was performed and monitored anesthesia care initiated. The anus appeared normal. Digital rectal exam was unremarkable, a small hypertrophied anal papilla was felt. The colonoscope was lubricated and inserted into the anus. The scope was advanced to the appendiceal orifice with ease. The prep was excellent. The ileocecal valve and distal ileum was visualized. The scope was slowly withdrawn and mucosal surfaces carefully inspected. A small subcentimeter sessile polyp was seen in the ascending colon. This was biopsied with forceps and remaining tissue was fulgurated. No other polyps were identified. There was no diverticular disease. Internal hemorrhoids were noted on retroflexion in the rectum. Air was suctioned prior to removal of the scope. The patient tolerated the procedure well.
--- NOTE | 2020-04-03 09:51 | PCM48HPAN ---
Post Anesthesia Note - EVALUATION WITHIN 48HRS OF ANESTHETIC Vital Signs in Normal Range: Yes Patient Participated in Evaluation: Yes Respiratory Function Stable: Yes Airway Patent: Yes Cardiovascular Function Stable: Yes Hydration Status Stable: Yes Pain Control Satisfactory: Yes Nausea and Vomiting Control Satisfactory: Yes Mental Status Recovered: Yes Vital Signs: Last Vital Signs Temp 36.4 C 04/03/20 08:20 Pulse 72 04/03/20 08:20 Resp 16 04/03/20 08:20 BP 116/79 04/03/20 08:20 Pulse Ox 98 04/03/20 08:20
[2020-04-03 09:56] VITALS: BP 137/90; PULSE 68
== END 2020-04-03 10:17 | disposition home or self-care (01) ==
LOC: JD.SDS 08:18
PROVIDERS: ATTEND Surgery
DX: Z12.11 Encounter for screening for malignant neoplasm of colon (principal); D12.2 Benign neoplasm of ascending colon; K62.89 Other specified diseases of anus and rectum; K64.8 Other hemorrhoids; E78.5 Hyperlipidemia, unspecified; I10 Essential (primary) hypertension; E78.00 Pure hypercholesterolemia, unspecified; F17.210 Nicotine dependence, cigarettes, uncomplicated; I25.10 Atherosclerotic heart disease of native coronary artery without angina pectoris; Z88.8 Allergy status to other drugs, medicaments and biological substances; Z79.82 Long term (current) use of aspirin; Z91.040 Latex allergy status; Z79.899 Other long term (current) drug therapy; Z90.49 Acquired absence of other specified parts of digestive tract
CPT/HCPCS: 45380; J2001; J2704; J7120; 00812; 88305

== ENCOUNTER 2021-08-10 14:53 | Day surgery (SDC) | payer MEDICARE, BC ==
--- NOTE | 2021-08-06 14:50 | PCM.SN.2 ---
- Free Text/Narrative Note: Date: Time Out: Start: Stop: Current Procedure: Right interscalene block under US guidance for postoperative pain control requested by Dr. Cavazos. Patient chart reviewed, risk/benefits discussed with patient, consent obtained. Patient positioned supine, monitors/alarms on, oxygen placed via nasal cannula at 2 LPM. IV sedation administered: Versed mg IV, Fentanyl mcg IV given in preop prior to block placement. Right shoulder prepped with two chloropreps. Sterile drapes placed with aseptic technique noted. Under US guidance, right subclavian artery visualized along with the right brachial plexus. Plexus followed up to C6 cricoid level, and area localized with 2mls of 1% lidocaine. 22gauge 2 inch stimiplex needle advanced under US with 0.6mV with stimulation of biceps noted. Good stimulation noted with decreased voltage and absent at 0.3mVs. 1ml of Normal Saline injected with loss of stimulation noted to confirm needle not placed intraneurally. Incremental dosing of 5mls with negative aspiration noted prior to each i njection of 0.5% ropivacaine with 1:200,000 epinephrine. Total volume=30mls. Please refer to nurses noted for vital signs. Mariola Pyle CRNA
--- NOTE | 2021-08-06 14:57 | PCM.PREANE ---
<Mariola Pyle - Last Filed: 08/06/21 14:51> Preanesthetic Assessment - Procedure Proposed Procedure: Right Reverse Shoulder Replacement - Anesthesia/Transfusion/Family Hx Anesthesia History: Prior Anesthesia Without Reaction Family History of Anesthesia Reaction: No Transfusion History: No Prior Transfusion(s) Intubation History: Unknown - Review of Systems Pulmonary: No Symptoms (Smoker:) Cardiovascular: No Symptoms (Elevated Cholesterol, HTN, [place](2013)-stents, CAD) Neurological: No Symptoms (chronic back pain) Other: Reports: Sinus Problem (seasonal allergies) - Physical Assessment NPO Status Date: 08/09/21 Vital Signs: HR: Sat: Temp: B/P: Resp: ASA Class: 2 Mental Status: Alert & Oriented x3 Airway Class: Mallampati = 3 Dentition: Reports: Normal Dentition, Caries Thyro-Mental Finger Breadths: 3 Mouth Opening Finger Breadths: 3 ROM/Head Extension: Full - Allergies Allergies/Adverse Reactions: Allergies Allergy/AdvReac Type Severity Reaction Status Date / Time atorvastatin [From Lipitor] Allergy Muscle Verified 08/09/21 17:56 Aches ezetimibe [From Zetia] Allergy Cannot Verified 08/09/21 17:56 Remember fenofibrate Allergy Cannot Verified 08/09/21 17:56 Remember gemfibrozil Allergy Cannot Verified 08/09/21 17:56 Remember Latex, Natural Rubber Allergy Rash Verified 08/09/21 17:56 rosuvastatin [From Crestor] Allergy Cannot Verified 08/09/21 17:56 Remember varenicline [From Chantix] AdvReac Depression Verified 08/09/21 17:56 - Anesthesia Plan Pre-Op Medication Ordered: Beta Anjel Beta Anjel: Metoprolol Med Last Dose Date: 08/10/21 - Acknowledgements Anesthesia Type Planned: General Anesthesia (And Right ISB under US guidance for post operative pain control requested by Dr. Cavazos.) Pt an Appropriate Candidate for the Planned Anesthesia: Yes Alternatives and Risks of Anesthesia Discussed w Pt/Guardian: Yes Pt/Guardian Understands and Agrees with Anesthesia Plan: Yes PreAnesthesia Questionnaire HEENT History: Reports: Sinusitis, Other (See Below) Other HEENT History: Bacterial Conjunctivitis, Sinus Pain Cardiovascular History: Reports: High Cholesterol, Hypertension, [place] (2013), Stents, Other (See Below) Other Cardiovascular History: PVD, Heart Disease, Chest Pain Respiratory History: Reports: None Gastrointestinal History: Reports: Other (See Below) Other Gastrointestinal History: Rectal Mass Genitourinary History: Reports: Other (See Below) Other Genitourinary History: Erectile Dysfunction Musculoskeletal History: Reports: Arthritis, Back Pain, Chronic, Other (See Below) Other Musculoskeletal History: Left wrist ganglion cyst, Sacroilliac Pain, Hand Injury/Trauma Other Neuro History: Lumbar Pain Psychiatric History: Reports: None Endocrine/Metabolic History: Reports: None Hematologic History: Reports: Other (See Below) Other Hematologic History: Hematoma Dermatologic History: Reports: Eczema - Past Surgical History HEENT Surgical History: Reports: None Cardiovascular Surgical History: Reports: Coronary Artery Stent Respiratory Surgical History: Reports: None GI Surgical History: Reports: Appendectomy Male Surgical History: Reports: Vasectomy Musculoskeletal Surgical History: Reports: Arthroscopic Knee, Carpal Tunnel, Knee Replacement, Shoulder Surgery, Other (See Below) Other Musculoskeletal Surgeries/Procedures:: Right knee surgery, right elbow and wrist Oncologic Surgical History: Reports: None Dermatological Surgical History: Reports: Skin Graft - HOME MEDS Home Medications: Home Meds Enalapril Maleate 20 mg PO DAILY 05/13/15 [History] Triamcinolone Acetonide [Triamcinolone Acetonide 0.1% Crm] 15 gm TOP DAILY PRN 05/13/15 [History] Multivitamins/Iron/Folic Acid [Cerovite Advanced Formula] 1 tab PO DAILY 12/30/17 [History] Ubidecarenone [Co Q-10] 100 mg PO DAILY 12/30/17 [History] amLODIPine Besylate [Amlodipine Besylate] 10 mg PO DAILY 12/30/17 [History] Tamsulosin HCl [Flomax] 0.4 mg PO DAILY 04/02/20 [History] Aspirin [Aspirin EC] 325 mg PO DAILY #30 tablet.dr 08/10/21 [Rx] Cyclobenzaprine [Flexeril] 10 mg PO BID PRN #20 tab 08/10/21 [Rx] oxyCODONE 5 - 10 mg PO Q4H PRN #40 tab 08/10/21 [Rx] <Nas Sethi - Last Filed: 08/10/21 13:50> Preanesthetic Assessment - Anesthesia/Transfusion/Family Hx Anesthesia History: Prior Anesthesia Without Reaction Family History of Anesthesia Reaction: No Transfusion History: No Prior Transfusion(s) Intubation History: Unknown - Review of Systems Pulmonary: No Symptoms, Cough Cardiovascular: No Symptoms Neurological: No Symptoms Other: Reports: Sinus Problem - Physical Assessment NPO Status Time: 22:00 Vital Signs: 142/68, 88 HR, 94% RA ASA Class: 3 Mental Status: Alert & Oriented x3 Airway Class: Mallampati = 4 Dentition: Reports: [place](s), Missing Tooth/Teeth, Caries ROM/Head Extension: Limited/Partial (thick and short neck) Lungs: Normal Respiratory Effort, Decreased Breath Sounds, Other (coarse breath sounds all quadrants) - Anesthesia Plan Pre-Op Medication Ordered: Beta Anjel Beta Anjel: Metoprolol - Acknowledgements Anesthesia Type Planned: General Anesthesia, Regional Block Pt an Appropriate Candidate for the Planned Anesthesia: Yes Alternatives and Risks of Anesthesia Discussed w Pt/Guardian: Yes Pt/Guardian Understands and Agrees with Anesthesia Plan: Yes PreAnesthesia Questionnaire - CURRENT (IN HOUSE) MEDS Current Meds: Current Medications Lactated Ringer's (Ringers, Lactated) 1,000 mls @ 125 mls/hr IV ASDIRECTED MELIDA Stop: 08/10/21 23:00 Last Admin: 08/10/21 11:30 Dose: 125 mls/hr Documented by: Lidocaine/Sodium Bicarbonate (Lidocaine 1%/Sod Bicarbonate In Ns 8.4% 1 Ml Syringe) 0.25 ml IDERM ONETIME PRN PRN Reason: Prior to IV Start Stop: 08/10/21 18:00 Sodium Chloride (Sodium Chloride 0.9% 10 Ml Syringe) 10 ml FLUSH ASDIRECTED PRN PRN Reason: Keep Vein Open Stop: 08/10/21 18:00 Discontinued Medications Acetaminophen (Acetaminophen 325 Mg Tab) 975 mg PO ONETIME MELIDA Stop: 08/10/21 12:00 Last Admin: 08/10/21 11:50 Dose: 975 mg Documented by: Cefazolin Sodium (Cefazolin 1 Gm Vial) Confirm Administered Dose 2 gm .ROUTE .STK-MED ONE Stop: 08/10/21 13:27 Dexamethasone (Dexamethasone 4 Mg/Ml 5 Ml Mdv) Confirm Administered Dose 20 mg .ROUTE .STK-MED ONE Stop: 08/10/21 11:45 Dexmedetomidine HCl (Dexmedetomidine 200 Mcg/2 Ml Sdv) Confirm Administered Dose 200 mcg .ROUTE .STK-MED ONE Stop: 08/10/21 11:45 Fentanyl (Fentanyl 100 Mcg/2 Ml Sdv) Confirm Administered Dose 100 mcg .ROUTE .STK-MED ONE Stop: 08/10/21 11:48 Lactated Ringer's (Ringers, Lactated) Confirm Administered Dose 1,000 mls @ as directed .ROUTE .STK-MED ONE Stop: 08/10/21 12:43 Lidocaine HCl (Lidocaine 1% 5 Ml Sdv) Confirm Administered Dose 5 ml .ROUTE .STK-MED ONE Stop: 08/10/21 13:13 Lidocaine/Epinephrine (Lidocaine 2% With Epinephrine 1:200,000 20 Ml Sdv) Confirm Administered Dose 20 ml .ROUTE .STK-MED ONE Stop: 08/10/21 11:45 Midazolam HCl (Midazolam 1 Mg/Ml 2 Ml Sdv) Confirm Administered Dose 4 mg .ROUTE .STK-MED ONE Stop: 08/10/21 11:48 Oxycodone HCl (Oxycodone Er 10 Mg Tab.Er) 10 mg PO ONETIME MELIDA Stop: 08/10/21 12:00 Last Admin: 08/10/21 11:49 Dose: 10 mg Documented by: Pregabalin (Pregabalin 25 Mg Cap) 50 mg PO ONETIME MELIDA Stop: 08/10/21 12:00 Last Admin: 08/10/21 11:50 Dose: 50 mg Documented by: Propofol (Propofol 200 Mg/20 Ml Sdv) Confirm Administered Dose 400 mg .ROUTE .STK-MED ONE Stop: 08/10/21 11:57 Ropivacaine (Ropivacaine 0.5% 5 Mg/Ml 30 Ml Sdv) Confirm Administered Dose 30 ml .ROUTE .STK-MED ONE Stop: 08/10/21 11:39 Tranexamic Acid (Tranexamic Acid 1,000 Mg/10 Ml Amp) Confirm Administered Dose 1,000 mg .ROUTE .STK-MED ONE Stop: 08/10/21 12:39 Vancomycin HCl (Vancomycin 1 Gm Sdv) Confirm Administered Dose 1 gm .ROUTE .STK- MED ONE Stop: 08/10/21 12:39
--- NOTE | 2021-08-10 14:19 | PCM.PRNOTE ---
- Free Text/Narrative Note: Postoperative regional pain control requested by surgeon. Pre-op Dx:Right shoulder osteoarthritis Surgical procedure:Right total shoulder replacement Procedure:Right Interscalene block with U/S guidance Requesting physician: Dr. Serafin Marie Risks and benefits discussed with the patient preoperatively including infection, bleeding, incomplete or failed block, possible nerve damage, local anesthetic toxicity. Chart reviewed, VS stable. Permit signed. Patient in preoperative room 4, stable , alert and awake. Time out performed at 12:18 Oxygen 3L via FM. Right side of the neck was prepped with Chloraprep x 1 and allowed to dry. Total Midazolam IV 2 mg and 100 mcg of Fentanyl given . Under aseptic technique, the brachial plexus was identified under ultrasound prior to needle insertion. Local infiltration with 2mls of 1% Lidocaine. 2" Stimuplex needle #22 G was inserted under US guidance. Neuromuscular response of biceps contraction and forearm twitching elicited at 0.6 mA. Under direct visu alization of needle tip the injection of 17 cc of 0.5% Ropivacaine (17 mls) and 2%PF Lidocaine(8 mls) with 1:200k epinephrine, mixed with 6 mg of Dexamethasone and 40 mcg of Dexmedetomidine, total of 25 mls in divided doses, maintaining negative aspiration was completed. Visualization and needle control difficult due to patient's wide amplitude of chest movements with respiration. additional help requested to secure patient's head in the position. No local anesthetic toxicity was noted. Patient is awake, stable and tolerated the procedure well. Please see the attached U/S images Time: 12:18 - 12:33
[~2021-08-10 14:53] MED LIST changes: +Acetaminophen 325 MG Tab PO SCH; +Dexamethasone 4 MG/ML 5 ML MDV ONE; +Dexmedetomidine 200 MCG/2 ML SDV ONE; +HYDROmorphone 0.5 MG/0.5 ML Syringe IVPUSH PRN; +Lactated Ringers 1,000 ML ONE; +Lidocaine 2% with EPINEPHrine 1:200,000 20 ML SDV ONE; +Midazolam 1 MG/ML 2 ML SDV ONE; +Ondansetron 4 MG/2 ML SDV ONE; +Pregabalin 25 MG Cap PO SCH; +Propofol 200 MG/20 ML SDV ONE; +Ropivacaine 0.5% 5 MG/ML 30 ML SDV ONE; +Succinylcholine/Sod PF 100 MG/5 ML SYRINGE IV ONE; +Vancomycin 1 GM SDV ONE; +ceFAZolin 1 GM Vial ONE; +fentaNYL 100 MCG/2 ML SDV ONE; +oxyCODONE ER 10 MG TAB.ER PO SCH
[2021-08-10] MEDS ORDERED: Albuterol 0.083% 2.5 MG/3 ML Neb Soln ONE (15:08)
--- NOTE | 2021-08-10 15:11 | CR ---
Right shoulder: 3 views of the right shoulder were obtained. Study was obtained utilizing C-arm device in the operating room. Comparison: No prior right shoulder study is available. Findings: Study shows placement of a reverse shoulder prosthesis. Final film shows normal alignment. Fluoroscopy time is given as 3.9 seconds. Impression: 1. Procedural study as described above. Diagnostic code #2
[2021-08-10] MEDS ORDERED: Albuterol 0.083% 2.5 MG/3 ML Neb Soln NEB ONE (15:15)
--- NOTE | 2021-08-10 15:21 | PCM.POSTAN ---
POST ANESTHESIA ASSESSMENT - MENTAL STATUS Mental Status: Somnolent - VITAL SIGNS Vital Signs: Last Vital Signs Temp 97.7 F 08/10/21 15:05 Pulse 78 08/10/21 15:05 Resp 19 08/10/21 15:05 BP 159/94 H 08/10/21 15:05 Pulse Ox 92 L 08/10/21 15:12 - RESPIRATORY Respiratory Status: Respiratory Rate WNL, Airway Patent, O2 Saturation Stable, Supplemental Oxygen, Wheezing (RT neb treatment in PACU) - CARDIOVASCULAR CV Status: Pulse Rate WNL, Blood Pressure Stable - GASTROINTESTINAL GI Status: No Symptoms - PAIN Pain Score: 0 - POST OP HYDRATION Hydration Status: Adequate & Stable
[2021-08-10] MEDS: fentaNYL 100 MCG/2 ML SDV IVPUSH PRN ×2 (15:29→15:40)
--- NOTE | 2021-08-10 16:01 | CR ---
Right shoulder: Single portable view of the right shoulder was obtained in AP projection. Comparison: Prior fluoroscopy study performed earlier on the same day (3:26 PM). Reverse right shoulder prosthesis is seen. Components are aligned. Underlying bony structures appear intact. Small amount of soft tissue air is noted. Impression: 1. Satisfactory postoperative radiographic appearance of recently placed right shoulder prosthesis. Diagnostic code #2
[2021-08-10] MEDS ORDERED: oxyCODONE 5 MG Tab PO PRN (16:36)
[2021-08-10] MEDS ORDERED: Nicotine 14 MG/24 Hr Patch TRDERM PRN (18:09)
[2021-08-10 18:19] VITALS: BP 154/86; PULSE 97
[2021-08-10] MEDS ORDERED: Cyclobenzaprine 10 MG Tab PO SCH (21:00)
--- NOTE | 2021-08-11 08:39 | PCM48HPAN ---
Post Anesthesia Note - EVALUATION WITHIN 48HRS OF ANESTHETIC Vital Signs in Normal Range: Yes Patient Participated in Evaluation: Yes Respiratory Function Stable: No (still requires supplementary oxygen, IS exercises) Airway Patent: Yes Cardiovascular Function Stable: Yes Hydration Status Stable: Yes Pain Control Satisfactory: Yes Mental Status Recovered: Yes Vital Signs: 15:50 Vital Signs 142/76, HR 81, SpO2 92% on 2L
--- NOTE | 2021-08-16 18:37 | PCM.OPNOTE ---
- General Post-Op/Procedure Note Date of Surgery/Procedure: 08/10/21 Operative Procedure(s): right reverse total shoulder arthroplasty Pre Op Diagnosis: right glenohumeral arthrosis Post-Op Diagnosis: Same Anesthesia Technique: General ET Tube, Regional Block Primary Surgeon: Serafin Cavazos Anesthesia Provider: Nas Sethi Gang Plank Workman: Stephanie Barksdale Gang Plank Workman: Rubi Marcus EBL in mLs: 250 Complications: None Condition: Good Free Text/Narrative:: 36+2 13 28 baseplate
--- NOTE | 2021-08-31 08:16 | OR ---
DATE OF OPERATION: 08/10/2021 SURGEON: Serafin Cavazos MD OPERATION PERFORMED: Right reverse total shoulder arthroplasty. PREOPERATIVE DIAGNOSIS: Right glenohumeral arthrosis. POSTOPERATIVE DIAGNOSIS: Right glenohumeral arthrosis. ANESTHESIA: General endotracheal intubation with regional interscalene block. ANESTHESIA PROVIDER: Shyann Burris. ASSISTANTS: Stephanie Barksdale PA-C, and Rubi Marcus LPN. ESTIMATED BLOOD LOSS: 250 mL. COMPLICATIONS: None. CONDITION: Stable. IMPLANTS: 1. [place] size 36, +2 glenosphere. 2. [place] size 13 reverse humeral stem 135 degrees. 3. [place] size 28 mm concentric base plate. DESCRIPTION OF PROCEDURE: The patient was identified in the preoperative holding area. Proper site was marked and identified by the surgeon. The patient was taken back to the operating theater, where after adequate anesthesia, the patient's right upper extremity was sterilely prepped and draped in the usual sterile fashion. OR time-out was performed. The patient received 2 g IV Ancef. At this time, standard deltopectoral incision was made. Cephalic vein was identified. The deltoid was retracted laterally with the cephalic vein. The clavipectoral fascia was incised. The conjoined tendon was retracted medially. Anterior humeral circumflex vessels were ligated. Biceps tendon was identified and a tenodesis of the biceps tendon was done near the level of the pectoralis. At this time, the biceps was resected back to the level of the glenoid. Peel down of the subscapularis tendon was done and the humeral head was dislocated. The humeral head cut was completed and found to be adequate. All osteophytes were removed. Attention was turned to the glenoid. Anterior and posterior glenoid retractors were placed. Circumferential removal of all of the remaining labrum as well as partial capsulectomy was performed. Guide pin was placed in a center- center position and 28 mm concentric reamer was used and was found to have a good smile sign. At this time, the concentric base plate was placed and a central compression screw was placed and found to have adequate compression. An inferior and superior locking screw was placed in divergent fashion and a 36, +2 glenosphere was impacted into place. Attention was turned to the humerus. Starter awl was placed down the canal. The canal reamers were then used up to size 13 and I was able to broach up to a size 13, which was found to be rotationally and vertically stable in 30 degrees of retroversion. Trial implants with the 4 mm poly and 2 mm construct, 6 mm total construct was then placed. The patient had adequate mu-ism of tension on the deltoid and conjoined tendon and had full range of motion with no signs of instability. The trial implants were then removed. Size 13 stem was opened on the back table with a size 4 poly. These were impacted into place and then were impacted en bloc into the humerus. Humerus was then relocated. C-arm fluoroscopy showed it to be in proper position with no signs of fracture. 1 L pulse lavage irrigation with Ancef was irrigated through the shoulder along with 400 mL Irrisept irrigation. Topical tranexamic acid and vancomycin powder were applied. 2-0 Vicryl was used subcutaneously. Prineo was used for skin closure. The patient tolerated the procedure well and was sent to PACU in stable condition. JACOB /[id number]
== END 2021-08-10 19:15 | disposition home or self-care (01) ==
LOC: JD.SDS 14:53
PROVIDERS: ATTEND Orthopaedic Surgery
DX: M19.011 Primary osteoarthritis, right shoulder (principal); E78.5 Hyperlipidemia, unspecified; I10 Essential (primary) hypertension; N52.9 Male erectile dysfunction, unspecified; I73.9 Peripheral vascular disease, unspecified; E55.9 Vitamin D deficiency, unspecified; F17.210 Nicotine dependence, cigarettes, uncomplicated; I25.10 Atherosclerotic heart disease of native coronary artery without angina pectoris; R00.1 Bradycardia, unspecified; J32.9 Chronic sinusitis, unspecified; Z88.8 Allergy status to other drugs, medicaments and biological substances; Z91.040 Latex allergy status; Z79.899 Other long term (current) drug therapy; Z90.49 Acquired absence of other specified parts of digestive tract; Z98.890 Other specified postprocedural states
CPT/HCPCS: 23472; 73020; 76000; 94640; 97110; 97161; A9270; C1713; C1769; C1776; J0330; J0690; J1100; J2250; J2405; J2704; J2795; J3010; J3370; J7120; 01638; 64415; 76942

== ENCOUNTER 2021-09-16 14:58 | Emergency (ER) | payer MEDICARE, BC ==
[2021-09-16 15:19] VITALS: BP 171/100; PULSE 104
[2021-09-16] MEDS ORDERED: HYDROmorphone 1 MG/ML Syringe IM ONE (15:30)
== END 2021-09-16 17:00 | disposition home or self-care (01) ==
LOC: JD.ED 14:58
DX: M79.642 Pain in left hand (principal); E78.00 Pure hypercholesterolemia, unspecified; I10 Essential (primary) hypertension; I25.2 Old myocardial infarction; Z95.0 Presence of cardiac pacemaker; Z91.040 Latex allergy status; Z88.8 Allergy status to other drugs, medicaments and biological substances; Z79.82 Long term (current) use of aspirin; Z79.899 Other long term (current) drug therapy
CPT/HCPCS: 73030; 73060; 96372; 99283; J1170

== ENCOUNTER 2021-11-09 09:50 | Day surgery (SDC) | payer MEDICARE, BC ==
[~2021-11-09 09:50] MED LIST changes: -Dexamethasone 4 MG/ML 5 ML MDV ONE; -Dexmedetomidine 200 MCG/2 ML SDV ONE; -HYDROmorphone 0.5 MG/0.5 ML Syringe IVPUSH PRN; -Lactated Ringers 1,000 ML ONE; -Lidocaine 2% with EPINEPHrine 1:200,000 20 ML SDV ONE; -Midazolam 1 MG/ML 2 ML SDV ONE; -Ondansetron 4 MG/2 ML SDV ONE; -Propofol 200 MG/20 ML SDV ONE; -Ropivacaine 0.5% 5 MG/ML 30 ML SDV ONE; +Sodium Chloride 0.9% 10 ML Syringe FLUSH SCH; -Succinylcholine/Sod PF 100 MG/5 ML SYRINGE IV ONE; -Vancomycin 1 GM SDV ONE; -ceFAZolin 1 GM Vial ONE; -fentaNYL 100 MCG/2 ML SDV ONE
[2021-11-09] MEDS ORDERED: Vancomycin 1 GM SDV ONE (10:47)
[2021-11-09] MEDS ORDERED: EPINEPHrine 1 MG/ML SDV ONE (11:19)
[2021-11-09] MEDS ORDERED: Ropivacaine 0.5% 5 MG/ML 30 ML SDV ONE (11:19)
[2021-11-09] MEDS ORDERED: Midazolam 1 MG/ML 2 ML SDV ONE ×2 (11:20→11:36)
[2021-11-09] MEDS ORDERED: Succinylcholine/Sod PF 100 MG/5 ML SYRINGE IV ONE (11:35)
[2021-11-09] MEDS ORDERED: Lidocaine 1% 5 ML VIAL ONE (11:35)
[2021-11-09] MEDS ORDERED: Propofol 200 MG/20 ML SDV ONE (11:36)
[2021-11-09] MEDS ORDERED: fentaNYL 100 MCG/2 ML SDV ONE (11:36)
[2021-11-09] MEDS ORDERED: Ondansetron 4 MG/2 ML SDV ONE (12:38)
[2021-11-09] MEDS ORDERED: Dexamethasone 4 MG/ML 5 ML MDV ONE (12:38)
[2021-11-09] MEDS ORDERED: HYDROmorphone 0.5 MG/0.5 ML Syringe IVPUSH PRN (12:56)
[2021-11-09] MEDS ORDERED: Ondansetron 4 MG/2 ML SDV IVPUSH PRN (12:56)
[2021-11-09] MEDS ORDERED: ceFAZolin 1 GM Vial ONE (13:12)
[2021-11-09] MEDS: fentaNYL 100 MCG/2 ML SDV IVPUSH PRN ×2 (14:05→14:27)
[2021-11-09] MEDS ORDERED: oxyCODONE 5 MG Tab PO PRN (14:21)
[2021-11-09] MEDS ORDERED: Cyclobenzaprine 10 MG Tab PO ONE (14:22)
[2021-11-09 15:54] VITALS: BP 115/78; PULSE 78
== END 2021-11-09 16:05 | disposition home or self-care (01) ==
LOC: JD.SDS 09:50
PROVIDERS: ATTEND Orthopaedic Surgery
DX: M75.102 Unspecified rotator cuff tear or rupture of left shoulder, not specified as traumatic (principal); M19.012 Primary osteoarthritis, left shoulder; N52.9 Male erectile dysfunction, unspecified; E78.5 Hyperlipidemia, unspecified; I10 Essential (primary) hypertension; E55.9 Vitamin D deficiency, unspecified; F17.210 Nicotine dependence, cigarettes, uncomplicated; J30.9 Allergic rhinitis, unspecified; I25.10 Atherosclerotic heart disease of native coronary artery without angina pectoris; Z88.8 Allergy status to other drugs, medicaments and biological substances; Z79.899 Other long term (current) drug therapy; Z90.49 Acquired absence of other specified parts of digestive tract; Z98.890 Other specified postprocedural states
CPT/HCPCS: 23472; 73020; 76000; A9270; C1713; C1769; C1776; J0171; J0330; J0690; J1100; J2250; J2370; J2405; J2704; J2795; J3010; J3370; J7120; 64415; 76942

== ENCOUNTER 2024-04-16 08:57 | Day surgery (SDC) | payer MEDICARE, OTHER ==
[~2024-04-16 08:57] MED LIST changes: +Ketamine 200 MG/20 ML MDV ONE; -Lactated Ringers 1,000 ML IV SCH; +Lidocaine 1% 5 ML VIAL ONE; -Lidocaine 1%/Sod Bicarbonate in NS 8.4% 1 ML Syringe IDERM PRN; +Midazolam 1 MG/ML 2 ML SDV ONE; -Pregabalin 25 MG Cap PO SCH; +Propofol 200 MG/20 ML SDV ONE; +fentaNYL 100 MCG/2 ML SDV ONE; -oxyCODONE ER 10 MG TAB.ER PO SCH
[2024-04-16] MEDS ORDERED: Ondansetron 4 MG/2 ML SDV IVPUSH PRN ×2 (09:25→13:07)
[2024-04-16] MEDS ORDERED: fentaNYL 100 MCG/2 ML SDV IVPUSH PRN ×2 (09:25→13:07)
[2024-04-16] MEDS: Lactated Ringers 1,000 ML IV SCH (09:35)
[2024-04-16] MEDS: oxyCODONE ER 10 MG TAB.ER PO SCH (09:55)
[2024-04-16] MEDS: Acetaminophen 325 MG Tab PO SCH (09:55)
[2024-04-16] MEDS ORDERED: Rocuronium 50 MG/5 ML Vial ONE (09:55)
[2024-04-16] MEDS: Pregabalin 25 MG Cap PO SCH (09:56)
[2024-04-16] MEDS ORDERED: fentaNYL 250 MCG/5 ML SDV ONE (09:59)
[2024-04-16] MEDS ORDERED: HYDROmorphone 0.5 MG/0.5 ML Syringe ONE (09:59)
[2024-04-16] MEDS ORDERED: ceFAZolin 2 GM Vial ONE (10:40)
[2024-04-16] MEDS ORDERED: Phenylephrine 1% 10 MG/ML SDV ONE (10:55)
[2024-04-16] MEDS ORDERED: ePHEDrine 50 MG/ML SDV ONE (11:21)
[2024-04-16] MEDS: Morphine 8 MG, EPINEPHrine 0.3 MG, Cefuroxime 750 MG, Ketorolac 30 MG, Sodium Chloride ... PRN (11:55)
[2024-04-16] MEDS: Tranexamic Acid 1,000 MG/10 ML Vial ONE (11:55)
[2024-04-16] MEDS: Vancomycin 1 GM SDV ONE (11:55)
[2024-04-16] MEDS ORDERED: Lactated Ringers 1,000 ML ONE (12:00)
[2024-04-16] MEDS ORDERED: Ketorolac 15 MG/ML SDV ONE (12:37)
[2024-04-16] MEDS: HYDROmorphone 0.5 MG/0.5 ML Syringe IVPUSH PRN ×2 (12:48→13:10)
[2024-04-16] MEDS: oxyCODONE 5 MG Tab PO PRN (13:40)
[2024-04-16 15:09] VITALS: BP 130/83; PULSE 99
== END 2024-04-16 15:05 | disposition home or self-care (01) ==
LOC: JD.SDS 08:57
PROVIDERS: ATTEND Orthopaedic Surgery
DX: M16.11 Unilateral primary osteoarthritis, right hip (principal); I10 Essential (primary) hypertension; E78.5 Hyperlipidemia, unspecified; F32.A Depression, unspecified; D50.9 Iron deficiency anemia, unspecified; I25.10 Atherosclerotic heart disease of native coronary artery without angina pectoris; Z79.899 Other long term (current) drug therapy; Z88.8 Allergy status to other drugs, medicaments and biological substances
CPT/HCPCS: 0055T; 27130; 36415; 73501; 86850; 86900; 86901; 97110; 97161; A9270; C1713; C1776; J0171; J0690; J0697; J1170; J1885; J2250; J2270; J2371; J2704; J3010; J3370; J3490; J7120; 01214

== ENCOUNTER → 2025-05-30 | Day surgery (SDC) | payer MEDICARE, OTHER ==
[~2025-05-30] MED LIST changes: -Acetaminophen 325 MG Tab PO SCH; -Ketamine 200 MG/20 ML MDV ONE; -Lidocaine 1% 5 ML VIAL ONE
[2025-05-30] MEDS: Lactated Ringers 1,000 ML IV SCH (10:45)
[2025-05-30 14:40] VITALS: BP 151/81; PULSE 80
== END | disposition home or self-care (01) ==
LOC: JD.SDS 10:24
PROVIDERS: ATTEND Orthopaedic Surgery
DX: D17.21 Benign lipomatous neoplasm of skin and subcutaneous tissue of right arm (principal); G89.18 Other acute postprocedural pain; E78.00 Pure hypercholesterolemia, unspecified; I10 Essential (primary) hypertension; D50.9 Iron deficiency anemia, unspecified; I25.10 Atherosclerotic heart disease of native coronary artery without angina pectoris; F17.200 Nicotine dependence, unspecified, uncomplicated; Z88.8 Allergy status to other drugs, medicaments and biological substances; Z79.899 Other long term (current) drug therapy
CPT/HCPCS: 23071; 64415; 88304; A9270; J0665; J0690; J2003; J2250; J2704; J3010; J7120; 01610; 99100